=== PATIENT | female | born 1980 | race Caucasian/White ===

== ENCOUNTER 2018-11-15 17:45 | Inpatient (IN) | payer OTHER ==
[~2018-11-15] VITALS: Ht 170.2 cm; Wt 62.3 kg
[2018-11-15] MEDS ORDERED: KETOROLAC TROMETHAMINE 30 MG/ML VIAL IV STA (17:49)
[2018-11-15] MEDS ORDERED: SODIUM CHLORIDE 0.9% 1000ML 1,000 ML IV ONE (18:00)
[2018-11-15] MEDS ORDERED: AMPICILLIN SOD/SULBACTAM 3GM 100 ML IV ONE (18:00)
[2018-11-15] MEDS ORDERED: LIDOCAINE 2%/ EPINEPHRINE 20ML MDV INJ ONE (18:00)
[2018-11-15] MEDS ORDERED: CLINDAMYCIN PHOS 900MG/ 50ML 50 ML IV ONE (18:15)
[2018-11-15] MEDS ORDERED: METRONIDAZOLE 500MG/NS 100ML 100 ML IV ONE (19:00)
[2018-11-15] MEDS ORDERED: SODIUM CHLORIDE FLUSH 10 ML SYR INJ PRN (19:00)
[2018-11-15] MEDS ORDERED: DEXAMETHASONE SOD PHOS 10 MG/1 ML VIAL IV ONE (19:00)
[2018-11-15] MEDS ORDERED: KETOROLAC TROMETHAMINE 30 MG/ML VIAL IV PRN (19:00)
[2018-11-15] MEDS ORDERED: MORPHINE SULFATE INJ 4 MG/ML INJ 1ML IV PRN (19:15)
--- NOTE | 2018-11-15 19:34 | NUR ---
BEDSIDE REPORT GIVEN TO DIMITRY MONTERO
[2018-11-15] MEDS ORDERED: MORPHINE SULFATE 2 MG/ML SYR 1ML IV PRN (20:00)
[2018-11-15 20:18] LABS: BASOPHILS % 0.2 % (0.0-1.0); EOSINOPHILS % 0.3 % (0.0-6.0); HEMATOCRIT 38.6 % (34.2-44.1); HEMOGLOBIN 12.5 g/dL (12.0-16.0); LYMPHOCYTES # (AUTO) 0.7 (1.0-3.2); LYMPHOCYTES % 8.5 % (18.0-39.1); MEAN CORPUSCULAR HEMOGLOBIN 28.2 pg (28-32); MEAN CORPUSCULAR HGB CONC 32.4 g/dL (31-35); MEAN CORPUSCULAR VOLUME 87.1 fL (81-99); MONOCYTES # (AUTO) 0.9 (0.2-0.8); MONOCYTES % 10.7 % (4.4-11.3); NEUTROPHILS % 79.8 % (38.7-80.0); PLATELET COUNT 176 x10e3/uL (140-360); RED BLOOD COUNT 4.43 x10e6/uL (3.6-5.1); RED CELL DISTRIBUTION WIDTH 14.3 % (11.7-14.4)
[2018-11-15 20:32] LABS: ALANINE AMINOTRANSFERASE 17 IU/L (0-55); ALBUMIN 3.2 g/dL (3.5-5.0); ALBUMIN/GLOBULIN RATIO 0.8 (0.8-2.0); ALKALINE PHOSPHATASE 50 IU/L (40-150); ANION GAP 12.9 mmol/L (8-16); BLOOD UREA NITROGEN < 5 mg/dL (7-26); CALCIUM 9.4 mg/dL (8.4-10.2); CARBON DIOXIDE 31 mmol/L (22-29); CHLORIDE 94 mmol/L (98-107); CREATININE, SERUM 0.62 mg/dL (0.57-1.11); EST GLOMERULAR FILTRATION RATE > 60 ML/MIN (60-); GLUCOSE 78 mg/dL (74-118); SODIUM 135 mmol/L (136-145)
[2018-11-15 20:33] LABS: BUN/CREATININE RATIO 8 (6-25)
[2018-11-15 20:34] LABS: POTASSIUM 2.9 mmol/L (3.5-5.1)
--- NOTE | 2018-11-15 21:21 | Diagnostic Imaging Report ---
Examination: CT Face with Contrast History: Tooth infection and abscess. Left facial swelling Comparison studies: None Technique: Axial images were obtained through the maxillofacial region. Coronal and sagittal reconstructions obtained from the axial data. Dose modulation, iterative reconstruction, and/or weight based adjustment of the mA/kV was utilized to reduce the radiation dose to as low as reasonably achievable. Intravenous contrast: 100 mL Isovue-370. Findings: Soft tissues: There is a 2.4 x 2.3 x 1.0 cm (superoinferior x anteroposterior x transverse dimensions) rim-enhancing fluid collection along the buccal surface of the left mandible. There is adjacent reticulation of the subcutaneous fat and thickening of the platysma and edema of the left perimandibular soft tissues. Bones: There is a lucency surrounding the root of the first left mandibular molar tooth. Orbits: Globes: Intact Extra or intraconal abnormalities: None. Paranasal sinuses: Small retention cyst of the right maxillary sinus. Nasal cavity: Partially opacified due to hypertrophy of the bilateral inferior turbinates. Right-sided septal spur. IMPRESSION: Odontogenic (left first mandibular molar tooth) related left perimandibular soft tissue 2.4 x 2.3 x 1.0 cm abscess. Signed by: Dr. Diane Baez M.D. on 11/15/2018 9:18 PM
[2018-11-15] MEDS ORDERED: IOPAMIDOL 370 MG/ML 200 ML INFUS..BTL INJ ONE (21:49)
[2018-11-15] MEDS ORDERED: SODIUM CHLORIDE 0.9% 50ML 50 ML ONE (21:49)
[2018-11-15] MEDS ORDERED: POTASSIUM CHLORIDE 20 MEQ TAB CR PO SCH (22:00)
[2018-11-15] MEDS ORDERED: CLINDAMYCIN 600MG / 50ML 50 ML IV SCH (22:00)
[2018-11-15] MEDS: POTASSIUM CHLORIDE 20 MEQ TAB CR PO SCH (22:15)
[2018-11-15] MEDS: METRONIDAZOLE 500MG/NS 100ML 100 ML IV SCH (22:41)
[2018-11-15] MEDS: SODIUM CHLORIDE 0.9% 1000ML 1,000 ML IV SCH (23:44)
[2018-11-16] MEDS ORDERED: CLINDAMYCIN 600MG / 50ML 50 ML IV SCH (01:00)
[2018-11-16] MEDS: POTASSIUM CHLORIDE 20 MEQ TAB CR PO SCH ×2 (03:30→08:08)
[2018-11-16] MEDS: SODIUM CHLORIDE 0.9% 1000ML 1,000 ML IV SCH ×3 (04:21→18:41)
[2018-11-16] MEDS: METRONIDAZOLE 500MG/NS 100ML 100 ML IV SCH ×3 (05:39→21:42)
[2018-11-16 06:46] LABS: BASOPHILS % 0.1 % (0.0-1.0); LYMPHOCYTES # (AUTO) 0.4 (1.0-3.2); LYMPHOCYTES % 4.6 % (18.0-39.1); MEAN CORPUSCULAR HEMOGLOBIN 27.9 pg (28-32); MEAN CORPUSCULAR HGB CONC 32.2 g/dL (31-35); MEAN CORPUSCULAR VOLUME 86.7 fL (81-99); MONOCYTES # (AUTO) 0.6 (0.2-0.8); MONOCYTES % 7.1 % (4.4-11.3); NEUTROPHILS # (AUTO) 6.8 (2.1-6.9); NEUTROPHILS % 87.6 % (38.7-80.0); PLATELET COUNT 158 x10e3/uL (140-360); RED BLOOD COUNT 3.69 x10e6/uL (3.6-5.1); RED CELL DISTRIBUTION WIDTH 14.1 % (11.7-14.4)
[2018-11-16 06:49] LABS: HEMOGLOBIN 10.3 g/dL (12.0-16.0)
[2018-11-16 07:07] LABS: ALANINE AMINOTRANSFERASE 15 IU/L (0-55); ALBUMIN 2.6 g/dL (3.5-5.0); ALBUMIN/GLOBULIN RATIO 0.8 (0.8-2.0); ALKALINE PHOSPHATASE 36 IU/L (40-150); ANION GAP 11.6 mmol/L (8-16); BLOOD UREA NITROGEN 5 mg/dL (7-26); BUN/CREATININE RATIO 10 (6-25); CALCIUM 8.6 mg/dL (8.4-10.2); CARBON DIOXIDE 25 mmol/L (22-29); CHLORIDE 106 mmol/L (98-107); CREATININE, SERUM 0.52 mg/dL (0.57-1.11); EST GLOMERULAR FILTRATION RATE > 60 ML/MIN (60-); GLUCOSE 119 mg/dL (74-118); POTASSIUM 4.6 mmol/L (3.5-5.1); SODIUM 138 mmol/L (136-145)
--- NOTE | 2018-11-16 07:20 | NUR ---
WALKING ROUNDS WITH JANAK MORAES
[2018-11-16 07:39] LABS: LYMPHOCYTES % (MANUAL) 5 % (19-48); MONOCYTES % (MANUAL) 7 % (3.4-9.0); NEUTROPHILS % (MANUAL) 86 % (40-74)
[2018-11-16] MEDS ORDERED: POTASSIUM CHLORIDE 20 MEQ TAB CR PO SCH (08:15)
[2018-11-16] MEDS: LACTOBACILLUS ACIDOPHILUS CAPSULE PO SCH (08:29)
[2018-11-16] MEDS: FAMOTIDINE 20 MG/2 ML VIAL IV SCH ×2 (09:26→17:01)
--- NOTE | 2018-11-16 09:31 | NUR ---
SPOKE WITH DR Adelaida SHARP ABOUT D/C PT DUE TO IMPROVED POTASSIUM LEVEL OF 4.6 FROM 2.9 AND PT BEING STABLE; PER DR SHARP WILL SEE HER FIRST TO RE-EVALUATE
[2018-11-16] MEDS: CLINDAMYCIN 600MG / 50ML 50 ML IV SCH ×2 (12:55→22:42)
[2018-11-16] MEDS: ONDANSETRON HCL INJ 2MG/ML 2ML 2 MG/ML VIAL IV PRN (13:12)
--- NOTE | 2018-11-16 13:44 | NUR ---
PT ASKED FOR [employer], [employer]ED [employer] CHIPS, [employer] [place] [employer] AND [employer]ICE [employer] TREAT FOR DINNER
[2018-11-16 18:28] VITALS: BP 118/64
[2018-11-16 18:34] VITALS: BP 118/64
--- NOTE | 2018-11-16 19:20 | NUR ---
received aaox3, amb. left side of face swollen. denies pain at this time. will continue to monitor. bed locked and in lowest position. call light within easy reach.
[2018-11-16] MEDS: KETOROLAC TROMETHAMINE 30 MG/ML VIAL IV PRN (20:00)
[2018-11-16 20:38] VITALS: BP 114/58
[2018-11-16 21:00] VITALS: BP 114/58
[2018-11-17] VITALS (7 sets, daily range): BP systolic 90–109; BP diastolic 50–59
[2018-11-17] MEDS ORDERED: VYVANSE50 MG PO (02:10)
[2018-11-17] MEDS ORDERED: PANTOPRAZOLE SO40 MG PO (02:10)
[2018-11-17] MEDS ORDERED: CLONAZEPAM0.5 MG PO (02:10)
[2018-11-17] MEDS: SODIUM CHLORIDE 0.9% 1000ML 1,000 ML IV SCH ×3 (02:52→18:45)
[2018-11-17] MEDS: ONDANSETRON HCL INJ 2MG/ML 2ML 2 MG/ML VIAL IV PRN ×2 (03:32→22:30)
[2018-11-17] MEDS: CLINDAMYCIN 600MG / 50ML 50 ML IV SCH ×3 (04:50→21:35)
[2018-11-17] MEDS: METRONIDAZOLE 500MG/NS 100ML 100 ML IV SCH ×3 (05:55→22:29)
--- NOTE | 2018-11-17 07:05 | NUR ---
Received patient and walking rounds complete. Patient asleep at this time, no signs of distress. Call light in reach will continue to monitor.
[2018-11-17] MEDS: KETOROLAC TROMETHAMINE 30 MG/ML VIAL IV PRN ×2 (07:22→15:39)
[2018-11-17] MEDS: LACTOBACILLUS ACIDOPHILUS CAPSULE PO SCH (08:27)
[2018-11-17] MEDS: FAMOTIDINE 20 MG/2 ML VIAL IV SCH ×2 (08:27→17:24)
--- NOTE | 2018-11-17 09:00 | NUR ---
Patient A/O X3, even respirations on RA. Bowel sounds active, skin intact, no edema. Left side jaw swollen. Right AC 20 gauge IV intact with NS @ 125mls/hr. Patient is ambulatory and voids in the toilet. at bedside, bed in lowest position, wheels locked, call light in reach.
[2018-11-17] MEDS: KETOROLAC TROMETHAMINE 30 MG/ML VIAL IM PRN (22:30)
[2018-11-18 00:36] VITALS: BP 90/52
[2018-11-18] MEDS: SODIUM CHLORIDE 0.9% 1000ML 1,000 ML IV SCH ×2 (02:52→08:11)
[2018-11-18] MEDS: CLINDAMYCIN 600MG / 50ML 50 ML IV SCH ×2 (04:57→11:59)
[2018-11-18 05:29] VITALS: BP 96/56
[2018-11-18] MEDS: METRONIDAZOLE 500MG/NS 100ML 100 ML IV SCH (06:12)
[2018-11-18 06:27] LABS: BASOPHILS % 0.6 % (0.0-1.0); EOSINOPHILS # (AUTO) 0.2 (0.0-0.4); EOSINOPHILS % 2.7 % (0.0-6.0); HEMATOCRIT 27.3 % (34.2-44.1); HEMOGLOBIN 8.7 g/dL (12.0-16.0); LYMPHOCYTES # (AUTO) 2.3 (1.0-3.2); LYMPHOCYTES % 36.3 % (18.0-39.1); MEAN CORPUSCULAR HEMOGLOBIN 28.7 pg (28-32); MEAN CORPUSCULAR HGB CONC 31.9 g/dL (31-35); MEAN CORPUSCULAR VOLUME 90.1 fL (81-99); MONOCYTES # (AUTO) 0.5 (0.2-0.8); MONOCYTES % 8.1 % (4.4-11.3); NEUTROPHILS # (AUTO) 3.2 (2.1-6.9); PLATELET COUNT 195 x10e3/uL (140-360); RED BLOOD COUNT 3.03 x10e6/uL (3.6-5.1); RED CELL DISTRIBUTION WIDTH 14.9 % (11.7-14.4)
[2018-11-18] MEDS: KETOROLAC TROMETHAMINE 30 MG/ML VIAL IM PRN (06:50)
[2018-11-18 07:03] LABS: BLOOD UREA NITROGEN < 5 mg/dL (7-26); BUN/CREATININE RATIO 9 (6-25); CALCIUM 7.7 mg/dL (8.4-10.2); CARBON DIOXIDE 24 mmol/L (22-29); CHLORIDE 112 mmol/L (98-107); CREATININE, SERUM 0.56 mg/dL (0.57-1.11); EST GLOMERULAR FILTRATION RATE > 60 ML/MIN (60-); GLUCOSE 92 mg/dL (74-118); SODIUM 141 mmol/L (136-145)
--- NOTE | 2018-11-18 07:10 | NUR ---
Received patient and walking rounds complete. Patient awake at this time, no signs of distress. Call light in reach, will continue to monitor.
[2018-11-18] MEDS: LACTOBACILLUS ACIDOPHILUS CAPSULE PO SCH (08:11)
[2018-11-18] MEDS: FAMOTIDINE 20 MG/2 ML VIAL IV SCH (08:11)
[2018-11-18 08:29] VITALS: BP 104/58
[2018-11-18 09:37] VITALS: BP 104/58
[2018-11-18] MEDS: ONDANSETRON HCL INJ 2MG/ML 2ML 2 MG/ML VIAL IV PRN (10:50)
[2018-11-18] MEDS ORDERED: ZOFRAN8 MG PO (12:45)
[2018-11-18 12:48] VITALS: BP 114/59
--- NOTE | 2018-11-18 13:00 | NUR ---
Removed patients IV. Catheter tip intact and pressure dressing applied.
--- NOTE | 2018-11-18 13:05 | NUR ---
Patient discharged from facility. Patient gathered all personal belongings, discharge information, prescriptions and F/U information. No signs of distress when leaving facility.
== END 2018-11-18 13:05 | disposition home or self-care (01) | DRG 159 ==
LOC: ER 17:45 → ERHOLD 18:59 → MED/SURG 11-16 18:22
DX: K04.6 Periapical abscess with sinus (principal)
CPT/HCPCS: 36415; 70487; 80048; 80053; 84702; 85025; 99284; J1100; J1885; J2001; J2270; J2405; J7030; Q9967